=== PATIENT | female | born 1990 | race Caucasian/White ===

== ENCOUNTER 2024-07-13 00:33 | Inpatient (IN) | payer OTHER, SELFPAY ==
[2024-07-13 00:48] VITALS: BMI 27.4
[2024-07-13] MEDS ORDERED: hydrALAZINE 20 MG/ML VIAL SLOW IVP PRN ×3 (01:20→11:13)
[2024-07-13] MEDS ORDERED: Ibuprofen 800 MG TAB PO PRN (01:32)
[2024-07-13] MEDS ORDERED: Lidocaine 1% (PF) 30 ML VIAL SC PRN (01:32)
[2024-07-13] MEDS ORDERED: Docusate 100 MG CAP PO PRN (01:32)
[2024-07-13] MEDS ORDERED: Methylergonovine 0.2 MG/ML VIAL IM PRN (01:32)
[2024-07-13] MEDS ORDERED: Misoprostol 200 MCG TAB PR PRN (01:32)
[2024-07-13] MEDS ORDERED: Diphenoxylate HCl/Atropine Tablet PO PRN (01:32)
[2024-07-13] MEDS ORDERED: Acetaminophen 500 MG TAB PO PRN (01:32)
[2024-07-13] MEDS ORDERED: Tranexamic Acid 1,000 MG/10 ML VIAL IVP PRN (01:32)
[2024-07-13] MEDS ORDERED: Carboprost 250 MCG/ML AMP IM PRN (01:32)
[2024-07-13] MEDS ORDERED: fentaNYL 50 mcg/mL 1 mL Vial SLOW IVP PRN (01:32)
[2024-07-13] MEDS ORDERED: Ondansetron PF 4 MG/2 ML Vial IVP PRN ×2 (01:32→02:34)
[2024-07-13] MEDS ORDERED: Promethazine HCl 25 MG/ML VIAL IM PRN ×2 (01:32→02:34)
[2024-07-13] MEDS ORDERED: Oxytocin 30 units/NS 500 ML 500 ML IV SCH ×2 (01:45)
[2024-07-13] MEDS ORDERED: Lactated Ringer's 1,000 ML IV SCH (01:45)
[2024-07-13 01:59] LABS: Hemoglobin 11.4 g/dL (12.0-15.5); Mean Corpuscular HGB CONC 34.5 g/dL (32.0-36.0); Mean Corpuscular Hemoglobin 31.3 pg (27.0-33.0); Mean Corpuscular Volume 90.7 fL (81.6-98.3); Mean Platelet Volume 10.7 fL (7.4-10.4); Platelet Count 172 10x3/uL (150-450); RBC Distribution Width 14.2 % (11.5-14.5); Red Blood Cell (RBC) Count 3.64 10x6/uL (3.90-5.03); White Blood Cell (WBC) Count 9.4 10x3/uL (3.5-10.5)
[2024-07-13] MEDS: fentaNYL/Ropivacaine Epidural 100 ML ONE (02:21)
[2024-07-13 02:33] LABS: HBsAg Index 0.16 S/CO (0-0.99); Hep B Surf Ag - L&D Non-Reactive S/CO (NonReactive)
[2024-07-13 02:34] LABS: Syphilis Antibody Nonreactive (Nonreactive); Syphilis Antibody Index 0.03 S/CO (<1.00 Non-Reactive)
[2024-07-13] MEDS ORDERED: Acetaminophen 325 MG TAB PO PRN (02:34)
[2024-07-13] MEDS ORDERED: Moisturizing Cream (Eucerin) 113 GM JAR TOP PRN (02:34)
[2024-07-13] MEDS ORDERED: Naloxone HCl 0.4 mg/ml Vial IVP PRN ×2 (02:34)
[2024-07-13] MEDS ORDERED: ePHEDrine Sulfate 50 MG/10 ML VIAL SLOW IVP PRN (02:34)
[2024-07-13] MEDS ORDERED: diphenhydrAMINE 50 MG/ML VIAL IVP PRN (02:34)
[2024-07-13] MEDS ORDERED: Lactated Ringer's 500 ML IV PRN (02:34)
[2024-07-13] MEDS ORDERED: Communication Order-Pharmacy FS SCH (02:45)
[2024-07-13] MEDS ORDERED: fentaNYL 2 mcg/Ropivacaine 0.2% Epidural 100 ML CADD EPIDURAL SCH (02:45)
[2024-07-13] MEDS: Oxytocin 30 units/NS 500 ML 500 ML IV SCH (06:08)
[2024-07-13] MEDS: Dexmedetomidine 200 MCG/2 ML VIAL ONE (06:08)
[2024-07-13] MEDS ORDERED: Bupivacaine/Epinephrine 0.25% 30 ML VIAL ONE (08:00)
[2024-07-13] MEDS ORDERED: Bupivacaine 0.25% HCL 30 ML VIAL ONE (08:00)
[2024-07-13] MEDS ORDERED: ePHEDrine Sulfate 50 MG/10 ML VIAL ONE (08:00)
[2024-07-13 08:09] LABS: HIV (1/2) Antibody/Antigen Non-Reactive (NonReactive); HIV 1/2 INDEX 0.16 S/CO (<1.00)
[2024-07-13] MEDS ORDERED: Bisacodyl 10 MG SUPP PR PRN (11:13)
[2024-07-13] MEDS ORDERED: Milk Of Magnesia 30 ML UDCUP PO PRN (11:13)
[2024-07-13] MEDS ORDERED: Boostrix 0.5 ML (Tdap) VIAL (>/=7 yrs of age) IM ONE (11:13)
[2024-07-13] MEDS: Ibuprofen 800 MG TAB PO SCH (16:49)
[2024-07-13] MEDS: Benzocaine-Menthol 82.5 ML CAN TOP PRN (16:49)
[2024-07-13] MEDS: Ferrous Sulfate 325 MG TAB PO SCH (17:03)
[2024-07-13] MEDS: Docusate 100 MG CAP PO SCH (21:30)
[2024-07-14] MEDS: Dexmedetomidine 200 MCG/2 ML VIAL ONE (02:46)
[2024-07-14 19:17] VITALS: TEMP 98.3
[2024-07-15 08:07] VITALS: BP 97/52
== END 2024-07-15 13:00 | disposition home or self-care (01) | DRG 807 ==
LOC: CSHLD/OP 00:33 → CSHLD 01:32 → CSHPP 11:20
PROVIDERS: ADMIT Family Medicine; ATTEND Family Medicine
PROC: 10E0XZZ Delivery of Products of Conception, External Approach (ICD-10-PCS; principal; 2024-07-13)
PROC: 0HQ9XZZ Repair Perineum Skin, External Approach (ICD-10-PCS; 2024-07-13)
PROC: 10907ZC Drainage of Amniotic Fluid, Therapeutic from Products of Conception, Via Natural or Artificial Opening (ICD-10-PCS; 2024-07-13)
DX: O99.62 Diseases of the digestive system complicating childbirth (principal); Z37.0 Single live birth; K21.9 Gastro-esophageal reflux disease without esophagitis; Z3A.39 39 weeks gestation of pregnancy; Z79.899 Other long term (current) drug therapy; Z88.5 Allergy status to narcotic agent; O70.0 First degree perineal laceration during delivery
CPT/HCPCS: 51702; 85027; 86780; 86850; 86900; 86901; 87340; 87389; 99285; J0665; J2590